=== PATIENT | female | born 1990 | race Caucasian/White ===

== ENCOUNTER → 2016-07-30 | Outpatient (CLI) | payer OTHER ==
[~2016-07-30] MED LIST: FERR50TA3; NITR100C41 PO; PRENTAB26 PO
== END | disposition home or self-care (01) ==
LOC: C.LABSPEC 12:03
PROVIDERS: ATTEND Obstetrics & Gynecology
DX: O09.293 Supervision of pregnancy with other poor reproductive or obstetric history, third trimester (principal)

== ENCOUNTER 2016-08-23 19:24 | Inpatient (IN) | payer OTHER ==
[~2016-08-23] VITALS: Ht 154.9 cm; Wt 69.1 kg
[~2016-08-23 19:24] MED LIST changes: -FERR50TA3; -PRENTAB26 PO
[2016-08-23] MEDS ORDERED: LACTATED RINGER'S 1000ML 1,000 ML IV SCH (20:08)
[2016-08-23] MEDS ORDERED: LACTATED RINGER'S 1000ML 1,000 ML IV PRN (20:08)
[2016-08-23 20:30] LABS: HEMATOCRIT 33.5 % (37-47); MEAN CELL VOLUME 77.2 fL (80-100); MEAN CORPUSCULAR HEMOGLOBIN 25.3 pg (25-34); MEAN CORPUSCULAR HGB CONC 32.8 g/dl (32-36); PLATELET COUNT 197 K/uL (130-400); RED BLOOD COUNT 4.34 M/uL (4.2-5.4); WHITE BLOOD COUNT 22.49 K/uL (4.8-10.8)
[2016-08-23] MEDS ORDERED: BUPIVACAINE 0.25% 30 ML VIAL ONE (20:34)
[2016-08-23] MEDS ORDERED: EpHEDrine SULFATE INJ 50 MG/ML AMP ONE (20:34)
[2016-08-23] MEDS ORDERED: FENTANYL 2MCG/ML ROPIV 1.25MG/ML 100ML BAG EPI ONE (20:35)
[2016-08-23] MEDS ORDERED: FENTANYL CITRATE INJ 50 MCG/1 ML 2 ML VIAL ONE (20:35)
[2016-08-23 21:08] VITALS: Ht 154.9 cm; Wt 69.1 kg
[2016-08-23] MEDS ORDERED: FERR50TA3 (21:12)
[2016-08-23] MEDS ORDERED: PRENTAB26 PO (21:12)
[2016-08-23] MEDS ORDERED: LACTATED RINGER'S 1000ML 500 ML IV PRN (21:50)
[2016-08-23] MEDS ORDERED: EpHEDrine SULFATE INJ 50 MG/ML AMP IV PRN (22:00)
[2016-08-23] MEDS ORDERED: FENTANYL 2MCG/ML ROPIV 1.25MG/ML 100ML BAG EPI PRN (22:00)
[2016-08-23] MEDS ORDERED: NALOXONE HCL INJ 0.4 MG/1 ML VIAL/CARP IV PRN (22:00)
[2016-08-24] MEDS ORDERED: LACTATED RINGER'S 1000ML 500 ML IV PRN (04:12)
[2016-08-24] MEDS ORDERED: OXYTOCIN 30 UNITS/500ML NSS IV PRN ×2 (04:15→06:45)
[2016-08-24] MEDS ORDERED: NURSING VERBAL MED ORDER ONE (05:45)
[2016-08-24] MEDS ORDERED: IBUPROFEN 600 MG TAB PO PRN (06:45)
[2016-08-24] MEDS ORDERED: ACETAMINOPHEN 325 MG TAB PO PRN (06:45)
[2016-08-24] MEDS ORDERED: BENZOCAINE 20% AER SPR 82.5 GM CAN EXT PRN (06:45)
[2016-08-24] MEDS ORDERED: HYDROCORTISONE ACETATE 25 MG SUPP PR PRN (06:45)
[2016-08-24] MEDS ORDERED: ACETAMINOPHEN/CODEINE 300/30MG TAB PO PRN ×2 (06:45)
[2016-08-24] MEDS ORDERED: SUPERCREAM 0.870 % 15GM JAR EXT PRN (06:45)
[2016-08-24] MEDS ORDERED: LANOLIN OINT EXT PRN ×2 (06:45)
[2016-08-24] MEDS ORDERED: DIPHTHERIA/TETANUS/PERTUSSIS 0.5 ML SYR/VIAL IM. ONE (06:45)
--- NOTE | 2016-08-24 08:39 | DELIVERY SUMMARY ---
DATE OF OPERATION: 08/24/2016 DATE OF DELIVERY: 08/24/2016 FINDINGS: Viable female infant with Apgars of 8 and 9. Baby delivered over a midline episiotomy. Cord gases, cord blood samples obtained. Placenta delivered spontaneously. Episiotomy repaired with 2-0 and 4-0 Vicryl in a routine fashion. Estimated blood loss 300 mL. LABOR NOTE: The patient is a 26-year-old 2 para 0 with an EDC of 25 August who was admitted 39+ weeks gestational age with spontaneously rupture of membranes. The patient had been having contractions throughout the day of admission on 23 August. At approximately 1745 she had spontaneously rupture of membranes with subsequent increase in contractions. The patient has had a benign course. Her blood type A+, antibody negative, rubella immune, hepatitis B negative. She had a negative quad screen. She had a normal 1 hour Glucola x2. She had a negative third trimester beta strep culture. Upon admission, the patient was 2 cm dilated, 75% effaced, -1. AmniSure was positive for ruptured membranes. The contractions increased in intensity and anesthesia was consulted and an epidural was placed. Following placement of the epidural, there was approximately a 5 minutes deceleration to the 80s to 90s with slight decrease in blood pressure. She received ephedrine x1 which brought the blood pressure up and the heart rate returned to normal. Over the next 6 hours the patient had cervical change only to 7 cm. At that point, Pitocin was initiated per induction protocol for protracted active phase. Over the next 2 hours she progressed to full dilatation and began her second stage. She pushed for approximately 20 minutes delivering the viable female with description as above. Cord was clamped and cut. Cord gases, cord blood samples obtained. The placenta was delivered spontaneously. Midline episiotomy was repair with 4-0 and 2-0 Vicryl in a routine fashion. Estimated blood loss was 300 mL. Sponge and needle count was correct. I attest to the content of the Intraoperative Record and any orders documented therein. Any exceptions are noted below. MTDD
[2016-08-24 09:30] VITALS: BP 126/72; PULSE 113
[2016-08-24 12:20] VITALS: BP 117/74; PULSE 93; TEMP 37
[2016-08-24] MEDS: PRENATAL VITAMIN TAB PO SCH (15:07)
[2016-08-24] MEDS: DOCUSATE SODIUM 100 MG CAP PO SCH ×2 (15:07→19:36)
[2016-08-24] MEDS: FERROUS SULFATE 325 MG TAB PO SCH (15:07)
[2016-08-24 16:10] VITALS: BP 115/77; PULSE 102; TEMP 36.9; O2SAT 99
[2016-08-24 19:25] VITALS: BP 114/70; PULSE 93; TEMP 37.2; O2SAT 98
[2016-08-25 01:00] VITALS: BP 120/75; PULSE 72; TEMP 36.7
[2016-08-25 03:25] VITALS: BP 119/77; PULSE 105; TEMP 36.4
--- NOTE | 2016-08-25 06:50 | Medical Student: [facility] ---
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 Subjective conversation w/ patient Ambulation: ambulating normally Voiding: no voiding problems Passing Gas: Yes Diet Tolerance: Regular Diet Lochia: Moderate Feeding Type: Breast Feeding Review of Systems Constitutional: No fever Respiratory: No cough, No shortness of breath Cardiac: No chest pain, No palpitations Abdomen: No constipation, No diarrhea, No nausea, No pain, No vomiting Female : No dysuria Objective Vital Signs Date Time Temp Pulse Resp B/P Pulse Ox O2 Delivery O2 Flow Rate FiO2 08/25/16 03:25 36.4 105 18 119/77 Room Air 08/25/16 01:00 36.7 72 18 120/75 Room Air 08/25/16 01:00 Room Air 08/24/16 19:25 37.2 93 18 114/70 98 Room Air 08/24/16 16:10 99 Room Air 08/24/16 16:10 36.9 102 16 115/77 99 Room Air 08/24/16 12:20 37.0 93 16 117/74 Room Air 08/24/16 12:20 Room Air 08/24/16 09:30 113 20 126/72 Room Air Physical Exam General Appearance: WELL-APPEARING, WD/WN Respiratory/Chest: lungs clear, normal breath sounds Cardiovascular: regular rate, rhythm, no edema, no gallop, no JVD, no murmur Abdomen: normal bowel sounds Fundus: Firm, Non-Tender, Relation to Umbilicus (1 cm below ) Extremities: non-tender, no pedal edema Laboratory Results Last 24 Hours Test 08/25/16 04:44 Medications Medications (Trade) Dose Ordered Sig/Gisela Route Start Time Stop Time Status Last Admin Dose Admin Benzocaine (Dermoplast Aero Spr) 1 appln PRN PRN EXT 08/24/16 06:45 09/23/16 06:44 08/24/16 15:07 82.5 APPLN Prenat Multivit/ [place]/Iron/Folic Ac ( Vitamin Tab) 1 tab DAILY PO 08/24/16 08:00 09/23/16 07:59 08/24/16 15:07 1 TAB Docusate Sodium (coLACE CAP) 100 mg BID PO 08/24/16 08:00 09/23/16 07:59 08/24/16 19:36 100 MG Ferrous Sulfate (Feosol Tab) 325 mg DAILY PO 08/24/16 08:00 09/23/16 07:59 08/24/16 15:07 325 MG Assessment and Plan Post- Day Number: 1 Continue Routine Care: Patient is a 26 year old , PP day 1, and midline episiotomy. -vitals stable except for tachycardia (HR 105) -blood type A +, rubella immune -doing well clinically -encourage ambulation -tolerating PO diet -pain well controlled -discharge home tomorrow
[2016-08-25 06:58] LABS: HEMATOCRIT 28.8 % (37-47)
--- NOTE | 2016-08-25 07:11 | Progress Note ---
Subjective Aug 25, 2016. Subjective conversation w/ patient, physical exam Ambulation: ambulating normally Voiding: no voiding problems Passing Gas: Yes Review of Systems Constitutional: No fever Respiratory: No cough Cardiac: No chest pain Abdomen: No nausea, No pain Objective Vital Signs Date Time Temp Pulse Resp B/P Pulse Ox O2 Delivery O2 Flow Rate FiO2 08/25/16 03:25 36.4 105 18 119/77 Room Air 08/25/16 01:00 36.7 72 18 120/75 Room Air 08/25/16 01:00 Room Air 08/24/16 19:25 37.2 93 18 114/70 98 Room Air 08/24/16 16:10 99 Room Air 08/24/16 16:10 36.9 102 16 115/77 99 Room Air 08/24/16 12:20 37.0 93 16 117/74 Room Air 08/24/16 12:20 Room Air 08/24/16 09:30 113 20 126/72 Room Air Physical Exam General Appearance: WELL-APPEARING Respiratory/Chest: chest non-tender, lungs clear Cardiovascular: regular rate, rhythm Extremities: non-tender, no calf tenderness Laboratory Results Last 24 Hours Test 08/25/16 06:29 Hemoglobin 9.2 g/dL Hematocrit 28.8 % Assessment and Plan Post- Day#: 1 Continue Routine Care: PATIENT DAY 1 POST DELIVERY Resident Physician Supervision Note: I interviewed and examined the patient. Discussed with Dr. Gillespie and agree with findings and plan as documented in the note. Any exceptions or clarifications are listed here: routine care Documented By: Luis Nails
[2016-08-25] MEDS: FERROUS SULFATE 325 MG TAB PO SCH (08:05)
[2016-08-25] MEDS: PRENATAL VITAMIN TAB PO SCH (08:06)
[2016-08-25] MEDS: DOCUSATE SODIUM 100 MG CAP PO SCH ×2 (08:06→19:48)
[2016-08-25 08:15] VITALS: BP 115/79; PULSE 90; TEMP 36.5; O2SAT 98
[2016-08-25 15:45] VITALS: BP 122/79; PULSE 89; TEMP 36.8; O2SAT 99
--- NOTE | 2016-08-25 18:14 | Family Medicine Progress Note ---
Progress Note Date of Service Aug 25, 2016. Subjective Pt evaluation today including: conversation w/ patient, physical exam, chart review Medications Current Inpatient Medications Medications (Trade) Dose Ordered Sig/Gisela Route Start Time Stop Time Status Last Admin Dose Admin Lactated Ringer's 1,000 ml @ 125 mls/hr Q8H IV 08/23/16 20:08 08/25/16 20:07 08/23/16 21:28 125 MLS/HR Lactated Ringer's 1,000 ml @ 999 mls/hr Q1H1M PRN IV 08/23/16 20:08 09/22/16 20:07 08/23/16 22:06 999 MLS/HR Lactated Ringer's (Lr 1000ml) 500 ml @ 999 mls/hr Q31M PRN IV 08/24/16 04:12 09/23/16 04:11 Oxytocin (Pitocin IV) 30 units UD PRN IV 08/24/16 06:45 09/23/16 06:44 Benzocaine (Dermoplast Aero Spr) 1 appln PRN PRN EXT 08/24/16 06:45 09/23/16 06:44 08/24/16 15:07 82.5 APPLN Cocaine HCl (Supercream 0.870% Cr) BID PRN EXT 08/24/16 06:45 09/07/16 06:44 Hydrocortisone Acetate (Anusol Hc Supp) 25 mg BID PRN [place] 08/24/16 06:45 09/23/16 06:44 Lanolin (Lanolin Oint) PRN PRN EXT 08/24/16 06:45 09/23/16 06:44 Prenat Multivit/ [place]/Iron/Folic Ac ( Vitamin Tab) 1 tab DAILY PO 08/24/16 08:00 09/23/16 07:59 08/25/16 08:06 1 TAB Ibuprofen (Motrin Tab) 600 mg Q4H PRN PO 08/24/16 06:45 09/23/16 06:44 Acetaminophen (Tylenol Tab) 650 mg Q6H PRN PO 08/24/16 06:45 09/23/16 06:44 Acetaminophen/ Codeine Phosphate (Tylenol w/ Codeine #3 Tab) 1 tab Q4H PRN PO 08/24/16 06:45 09/23/16 06:44 Acetaminophen/ Codeine Phosphate (Tylenol w/ Codeine #3 Tab) 2 tab Q4H PRN PO 08/24/16 06:45 09/23/16 06:44 Bisacodyl (Dulcolax Tab) 5 mg 20 PO 08/25/16 20:00 08/25/16 20:01 Docusate Sodium (coLACE CAP) 100 mg BID PO 08/24/16 08:00 09/23/16 07:59 08/25/16 08:06 100 MG Ferrous Sulfate (Feosol Tab) 325 mg DAILY PO 08/24/16 08:00 09/23/16 07:59 08/25/16 08:05 325 MG
[2016-08-25] MEDS ORDERED: BISACODYL 5 MG TABEC PO SCH (20:00)
[2016-08-25 23:40] VITALS: BP 119/70; PULSE 81; TEMP 36.5
--- NOTE | 2016-08-26 06:39 | Medical Student: [facility] ---
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 Subjective conversation w/ patient Ambulation: ambulating normally Voiding: no voiding problems Passing Gas: Yes Diet Tolerance: Regular Diet Lochia: Small Feeding Type: Breast Feeding Review of Systems Constitutional: No chills, No fever Respiratory: No cough, No shortness of breath Cardiac: No chest pain, No palpitations Abdomen: + constipation, No diarrhea, No nausea, No pain, No vomiting Female : No dysuria Objective Vital Signs Date Time Temp Pulse Resp B/P Pulse Ox O2 Delivery O2 Flow Rate FiO2 08/25/16 23:40 Room Air 08/25/16 23:40 36.5 81 18 119/70 Room Air 08/25/16 15:45 36.8 89 18 122/79 99 Room Air 08/25/16 15:45 99 Room Air 08/25/16 08:15 98 Room Air 08/25/16 08:15 36.5 90 16 115/79 98 Room Air Physical Exam General Appearance: WELL-APPEARING, NO APPARENT DISTRESS Respiratory/Chest: lungs clear, normal breath sounds Cardiovascular: regular rate, rhythm, no edema, no gallop, no murmur Abdomen: normal bowel sounds Extremities: non-tender, no pedal edema Medications Medications (Trade) Dose Ordered Sig/Gisela Route Start Time Stop Time Status Last Admin Dose Admin Bisacodyl (Dulcolax Tab) 5 mg 20 PO 08/25/16 20:00 08/25/16 20:01 DC 08/25/16 19:48 5 MG Assessment and Plan Post- Day Number: 2 Continue Routine Care: Patient is 26 years old , PP day 2, s/p with midline episiotomy. -vitals stable and WNL -blood type A +, rubella immune -doing well clinically -encourage ambulation -tolerating PO diet -pain well controlled -controlling constipation with PO Colace 100 mg BID -consider discharge home today
--- NOTE | 2016-08-26 07:32 | Progress Note ---
Subjective Aug 26, 2016. Subjective conversation w/ patient, physical exam Ambulation: ambulating normally Voiding: no voiding problems Passing Gas: Yes Diet Tolerance: Regular Diet Lochia: Small Feeding Type: Breast Feeding Pain: 07/22 Review of Systems Constitutional: No chills, No fever Respiratory: No cough, No shortness of breath Cardiac: No chest pain, No edema, No palpitations Breast: No breast pain Abdomen: + constipation, No nausea, No pain, No vomiting Objective Vital Signs Date Time Temp Pulse Resp B/P Pulse Ox O2 Delivery O2 Flow Rate FiO2 08/25/16 23:40 Room Air 08/25/16 23:40 36.5 81 18 119/70 Room Air 08/25/16 15:45 36.8 89 18 122/79 99 Room Air 08/25/16 15:45 99 Room Air 08/25/16 08:15 98 Room Air 08/25/16 08:15 36.5 90 16 115/79 98 Room Air Physical Exam General Appearance: WELL-APPEARING Respiratory/Chest: lungs clear, normal breath sounds, no respiratory distress Cardiovascular: regular rate, rhythm Abdomen: normal bowel sounds Fundus: Firm, Non-Tender, Relation to Umbilicus Extremities: normal range of motion, non-tender, no calf tenderness Assessment and Plan Post- Day#: 2 Continue Routine Care: 26year old female post day 2 after of healthy female Plan for D/C today with follow up in clinic in 6 weeks
--- NOTE | 2016-08-26 07:34 | Discharge Instructions ---
Discharge Instructions Admission Reason for Admission: Encounter For Supervision Of Normal Intrauterine P Discharge Discharge Diagnosis / Problem: ( Day 2) Discharge Goals Goal(s): Routine recovery after delivery, Continuing OB care Activity Recommendations Activity Limitations: resume your previous activity . Current Hospital Diet Patient's current hospital diet: Regular OB Diet Discharge Diet Recommended Diet: Regular OB Diet Pending Studies Studies pending at discharge: no Medical Emergencies . Who to Call and When: Medical Emergencies: If at any time you feel your situation is an emergency, please call 911 immediately. . Non-Emergent Contact Non-Emergency issues call your: Primary Care Provider, Rack Cleaner . . "Provider Documentation" section prepared by Du Gillespie. VTE Core Measure Inpt VTE Proph given/why not?: Treatment not indicated
[2016-08-26] MEDS: FERROUS SULFATE 325 MG TAB PO SCH (08:27)
[2016-08-26] MEDS: DOCUSATE SODIUM 100 MG CAP PO SCH (08:28)
[2016-08-26] MEDS: PRENATAL VITAMIN TAB PO SCH (08:28)
[2016-08-26 08:45] VITALS: BP 120/79; PULSE 96; TEMP 36.8
[2016-08-26 11:20] VITALS: BP_DIAS 79; PULSE 96; TEMP 36.8
== END 2016-08-26 11:25 | disposition home or self-care (01) | DRG 775 ==
LOC: C.OPB 19:24 → C.LD 19:24 → C.OPB 20:09 → C.LD 20:09 → C.OBG 08-24 10:17
PROVIDERS: ADMIT Obstetrics & Gynecology; ATTEND Obstetrics & Gynecology
PROC: 0W8NXZZ Division of Female Perineum, External Approach (ICD-10-PCS; principal; 2016-08-24)
PROC: 10E0XZZ Delivery of Products of Conception, External Approach (ICD-10-PCS; principal; 2016-08-24)
DX: O42.02 Full-term premature rupture of membranes, onset of labor within 24 hours of rupture (principal); Z37.0 Single live birth; O76 Abnormality in fetal heart rate and rhythm complicating labor and delivery; O63.1 Prolonged second stage (of labor); Z3A.39 39 weeks gestation of pregnancy

== ENCOUNTER → 2016-11-11 | Outpatient (CLI) | payer OTHER ==
[~2016-11-11] MED LIST changes: +FERR50TA3; -NITR100C41 PO; +PRENTAB26 PO
[2016-11-11 09:39] LABS: PREG INTERNAL NEGATIVE QC NEG CLEAR BACKGROUND; PREG INTERNAL POSITIVE QC POS CONTROL LINE
== END | disposition home or self-care (01) ==
LOC: C.LAB1850 09:01
PROVIDERS: ATTEND Physician Assistant
DX: Z30.430 Encounter for insertion of intrauterine contraceptive device (principal)

== ENCOUNTER 2020-10-05 07:45 | Inpatient (IN) ==
[2020-10-05] MEDS ORDERED: OXYTOCIN 30 UNITS/500 ML BAG IV PRN ×2 (09:29→09:37)
--- NOTE | 2020-10-05 09:32 | Labor Progress Brief Note ---
Date of Service October 05, 2020 Subjective Chavis overnight; now in vagina. Irregular mild ctx per patient, no LOF, good FM. Assessment & Plan (1) Post-dates : Pitocin. Epidural on request. Admission and Anticipated Discharge Date Admission Date: October 05, 2020 Physical Exam Physical Exam: 50/-2 Intact membranes FHT Cat 1 [place] Q4-5 Results & Data ([facility]) Vital Signs (Past 12 Hours) Vital Signs Temp Pulse Resp BP 10/05/20 08:00 98.2 F 96 H 20 110/68 Coding Level of Care Code None Diagnoses Post-dates O48.0
[2020-10-05] MEDS: LACTATED RINGER'S 1,000 ML IV PRN ×3 (09:53→18:52)
[2020-10-05 09:56] LABS: Hematocrit (blood only) 29.1 % (37-47); Hemoglobin 9.3 g/dL (12.0-16.0); Mean Corpuscular Volume 78.2 fL (80-100); Mean Platelet Volume 10.4 fL (7.4-10.4); Platelet Count 174 K/uL (130-400); RDW Coefficient of Variation 14.1 % (11.5-14.5); RDW Standard Deviation 40.4 fL (36.4-46.3); Red Blood Count 3.72 M/uL (4.2-5.4); White Blood Count 10.76 K/uL (4.8-10.8)
[2020-10-05] MEDS ORDERED: SODIUM CHLORIDE 0.9% 250 ML IV PRN (12:18)
[2020-10-05] MEDS ORDERED: BUPIVACAINE 0.25% 30 ML VIAL ONE ×2 (14:01→15:42)
[2020-10-05] MEDS ORDERED: SODIUM CHLORIDE 0.9% INJ 10 ML VIAL ONE ×2 (14:01→15:42)
[2020-10-05] MEDS ORDERED: fentaNYL citrate 100 MCG/2 ML VIAL ONE (14:01)
[2020-10-05] MEDS ORDERED: ePHEDrine sulfate 50 MG/ML AMP ONE (14:01)
[2020-10-05] MEDS ORDERED: fentaNYL 2MCG/ML ROPIVACAINE 1.25MG/ML 100 ML BAG EPI ONE (14:02)
[2020-10-05] MEDS ORDERED: NALOXONE HCL 0.4 MG/1 ML VIAL/CARP IV PRN (14:33)
[2020-10-05] MEDS ORDERED: diphenhydrAMINE 50 MG/ML VIAL IV PRN (14:33)
[2020-10-05] MEDS ORDERED: ePHEDrine sulfate 50 MG/ML AMP IV PRN (14:33)
[2020-10-05] MEDS ORDERED: fentaNYL 2MCG/ML ROPIVACAINE 1.25MG/ML 100 ML BAG EPI PRN ×2 (14:33→15:42)
[2020-10-05] MEDS ORDERED: ONDANSETRON INJ 2 MG/ML 2 ML VIAL IV PRN (14:33)
[2020-10-05] MEDS ORDERED: NALOXONE HCL 1 MG in SODIUM CHLORIDE 0.9% 1000ML 1,000 ML IV PRN (14:33)
--- NOTE | 2020-10-05 14:37 | Anesthesiology Consultation ---
Date of Service October 05, 2020 Covid 19 negative on 10/05/20. Assessment & Plan Chart Review Chart Review: Patient NOT seen in Pre Admission Testing and Acceptable Risk for Labor Epidural Consults Requested none ASA ASA2 Proposed Anesthesia Anesthesia Type: Labor Epidural and CSE Risk / Benefits Reviewed With: PT / POA / Parent / Guardian, Accepts Plan and Informed Consent Obtained History Height/Weight Height: 5 ft 2 in Weight: 64.864 kg Allergies Allergy/AdvReac Type Severity Reaction Status Date / Time penicillin V Allergy Unknown UNKNOWN RXN Verified 10/05/20 08:04 Medications Home Medications Medication Instructions Recorded Confirmed Last Taken prenat.vits,damaris,[id number] 1 tab PO DAILY 02/15/20 10/05/20 10/04/20 08:00 Active Medications Generic Name Dose Route Start Last Admin Trade Name Freq PRN Reason Stop Dose Admin Lactated Ringer's 1,000 mls @ 125 mls/hr 10/05/20 09:29 10/05/20 14:26 Lr IV 10/07/20 09:28 999 mls/hr .Q8H PRN Administration L&D Protocol Protocol Oxytocin 30 units in 500 mls @ 11 mls/hr 10/05/20 09:37 10/05/20 12:30 Pitocin IV 10/07/20 09:36 0.66 units/hr .Q24H PRN 11 mls/hr Labor Induction/Augmentation Titration Protocol 0.66 UNITS/HR NPO Date Last Intake of Fluids: 10/05/20 Time Last Intake of Fluids: 14:00 Date Last Intake of Solids: 10/05/20 Time Last Intake of Solids: 09:00 Past Medical History Medical History Cervical cancer screening History of chicken pox Exercise / Class Metabolic Activity II 4-5 Yardwork/Stairs/Walk up hill Past Family History Family History Grandmother (Maternal) Colorectal cancer Other Diabetes Denies family history of Ovarian cancer Breast cancer Past Surgical History Surgical History S/P dilatation and curettage Past Anesthesia History No Hx of Anesthesia Complications and No Family Hx of Anesthesia Complications History of PONV No Hx of PONV and No Hx of Motion Sickness Social History Smoking Status: Never smoker Hx Alcohol Use: No Hx Substance Use: No Review of Systems no chest pain or sob Physical Exam Vital Signs Last Vital Signs Temp 36.9 C 10/05/20 12:56 Pulse 109 H 10/05/20 14:33 Resp 20 10/05/20 12:56 BP 132/81 10/05/20 13:57 Pulse Ox 100 10/05/20 14:33 ENMT Mouth: no TMJ abnormality Thyromental Distance: > or= 3.5 Finger Breadths Mallampati Class: II Neck normal visual inspection Respiratory normal respiratory effort Auscultation: lungs clear to auscultation bilaterally Cardiovascular Rate/Rhythm: regular rate and regular rhythm Musculoskeletal Spine: normal cervical ROM Neurologic moves all extremities Psychiatric Orientation: alert and oriented x 3 Testing Laboratory Results 10/05/20 09:43 Blood Type A Positive 10/05/20 09:43 Antibody Screen NEGATIVE 10/05/20 09:43
--- NOTE | 2020-10-05 19:26 | Delivery Summary ---
Vaginal Delivery Summary Date of Service October 05, 2020 Vaginal Delivery Summary DIAGNOSES: 1. Shepherd intrauterine at 40w3d gestation. 2. Induction of Labor for post-dates . 3. Group B Streptococcus Neg. PROCEDURE: Spontaneous vaginal delivery and repair of second-degree laceration. SURGEON: Ruth Ferrara MD. ENVIRONMENTAL HEALTH AIDE: None. ESTIMATED BLOOD LOSS: 300 mL. COMPLICATIONS: None. PLACENTA: Spontaneous and intact with a 3-vessel cord. DISPOSITION: Stable to labor and delivery. DESCRIPTION: The patient pushed well and brought the head to in EFFIE position. The 's head was allowed to deliver with contraction force and no further active pushing, with the perineum protected during this time. The shoulders delivered easily with a maternal pushing effort. There was no nuchal cord. The left shoulder was anterior and the left hand presented alongside the right cheek / created a perineal tear. the body delivered without any difficulty, and the infant was placed on the maternal abdomen. It was vigorous and moving all extremities, and making respiratory efforts. The cord was doubly clamped by the MD and then cut by the FOB. The placenta delivered spontaneously and was noted to be intact and with a 3VC. The cervix, vagina and perineum were examined and were found to have a second-degree tear which was repaired in the usual manner with vicryl including a crown suture to rebuild the perineal body. The fundus was firm and lochia minimal immediately after delivery. [facility] [place]ag[place] Delivery Charge Vaginal Delivery Codes: 07916 global code for the antepartum, delivery, and post-
[2020-10-05] MEDS ORDERED: BENZOCAINE 20% AER SPR 82.5 GM CAN EXT PRN (19:33)
[2020-10-05] MEDS ORDERED: SUPERCREAM 0.870% 15 GM JAR EXT PRN (19:33)
[2020-10-05] MEDS ORDERED: DIPHTHERIA/TETANUS/PERTUSSIS 0.5 ML SYR/VIAL IM ONE (19:33)
[2020-10-05] MEDS ORDERED: HYDROCORTISONE ACETATE 25 MG SUPP PR PRN (19:33)
[2020-10-05] MEDS ORDERED: oxyCODONE/ACETAMINOPHEN 5mg/325mg TAB PO PRN (19:33)
[2020-10-05] MEDS ORDERED: ACETAMINOPHEN 325 MG TAB PO PRN (19:33)
--- NOTE | 2020-10-05 20:11 | Anesthesia Procedure Note ---
Date of Service October 05, 2020 Anesthesia Post Epidural Note Vital Signs Vital Signs: Temp Pulse Resp BP Pulse Ox 37.1 C 111 H 18 135/82 100 10/05/20 19:00 10/05/20 20:10 10/05/20 19:00 10/05/20 20:10 10/05/20 19:23 Pain Intensity Bilateral Abdomen: Pain Intensity: 0 Notes Mental Status: alert / awake / arousable and participated in evaluation Nausea / Vomiting: adequately controlled Pain: adequately controlled Airway Patency, RR, SpO2: stable & adequate BP & HR: stable & adequate Hydration State: stable & adequate Neuraxial Anesthesia: was administered and sensory block is resolving Anesthetic Complications: no major complications apparent and Pt Satisfied with anesthetic care Epidural: Removed without complications and With tip intact
[2020-10-06] MEDS: DOCUSATE SODIUM 100 MG CAP PO SCH ×2 (02:33→07:50)
--- NOTE | 2020-10-06 04:33 | Obstetrical Progress Note ---
Date of Service <Allan Davis MD - Last Filed: 10/06/20 06:24> October 06, 2020 Assessment & Plan <Allan Davis MD - Last Filed: 10/06/20 06:24> (1) Post-dates : - PNL: Rh [pos], RI, GBS [neg], COVID [neg] - Feels well today. Eating well, voiding well, ambulating well - Pain well controlled with ibuprofen 600mg Q4H PRN - Routine care -- OOB, ambulation, diet progression as tolerated - After discharge will have 6 week follow-up with Dr. Ferrara Subjective <Allan Davis MD - Last Filed: 10/06/20 06:24> Ana is a 30 y/o female who is PPD #1 following at 40+ weeks. She reports feeling well overall this morning. Some abdominal cramping and 1/10 pain well managed on analgesics. Voiding well. Tolerating meals overnight without difficulty. Patient has been able to ambulate some. Is passing gas, has yet to have a bowel movement. Has persistent lochia with some improvement this morning. Currently . Physical Exam <Allan Davis MD - Last Filed: 10/06/20 06:24> General: Alert, oriented. No acute distress. Cardiac: Regular rate and rhythm. No murmurs. Respiratory: Clear to auscultation bilaterally a/p, no wheezes/rales/rhonchi. No increased work of breathing. Symmetrical chest rise. No respiratory distress. Abdomen: Soft, nontender, nondistended. Bowel sounds present. Uterus: Uterine fundus firm, palpable ~1 cm below umbilicus. Lower Extremities: No lower extremity edema or swelling. No deep calf pain. Soniya's negative bilaterally. Results & Data ([facility]) <Allan Davis MD - Last Filed: 10/06/20 06:24> Vital Signs (Past 12 Hours) Vital Signs Temp Pulse Pulse Resp BP BP Pulse Ox 10/06/20 03:00 37.1 C 91 H 18 119/78 10/05/20 22:29 37.4 C 125 H 18 138/81 10/05/20 21:59 125 H 138/81 10/05/20 21:41 123 H 138/93 10/05/20 21:40 96 H 136/79 10/05/20 21:30 115 H 127/77 10/05/20 21:20 108 H 125/77 10/05/20 21:10 104 H 18 125/78 10/05/20 21:00 117 H 135/86 10/05/20 20:50 93 H 146/87 H 10/05/20 20:40 105 H 18 136/79 10/05/20 20:30 103 H 133/79 10/05/20 20:25 18 10/05/20 20:10 111 H 18 135/82 10/05/20 20:00 106 H 124/64 10/05/20 19:55 18 10/05/20 19:50 107 H 124/62 10/05/20 19:40 37.4 C 115 H 18 131/60 10/05/20 19:26 114 H 137/67 10/05/20 19:23 108 H 100 10/05/20 19:18 112 H 100 10/05/20 19:13 155 H 100 10/05/20 19:11 123 H 113/71 10/05/20 19:08 112 H 100 10/05/20 19:03 114 H 100 10/05/20 19:00 37.1 C 18 10/05/20 18:58 109 H 100 10/05/20 18:57 104 H 114/69 10/05/20 18:53 103 H 100 10/05/20 18:48 104 H 100 10/05/20 18:43 97 H 100 10/05/20 18:42 103 H 116/71 10/05/20 18:38 107 H 100 10/05/20 18:33 107 H 100 10/05/20 18:30 18 10/05/20 18:28 117 H 100 10/05/20 18:26 103 H 112/71 10/05/20 18:23 137 H 100 10/05/20 18:18 101 H 100 10/05/20 18:13 97 H 100 10/05/20 18:12 113 H 121/79 10/05/20 18:08 113 H 100 10/05/20 18:03 114 H 100 10/05/20 18:00 36.9 C 20 03/26/21 17:58 119 H 100 10/05/20 17:56 103 H 111/69 10/05/20 17:53 110 H 100 10/05/20 17:48 114 H 100 10/05/20 17:43 110 H 100 10/05/20 17:41 108 H 118/74 10/05/20 17:38 113 H 99 10/05/20 17:33 116 H 100 10/05/20 17:30 20 10/05/20 17:28 93 H 100 10/05/20 17:27 98 H 117/74 10/05/20 17:23 114 H 100 10/05/20 17:18 116 H 100 10/05/20 17:13 102 H 100 10/05/20 17:12 123 H 111/70 10/05/20 17:08 97 H 100 10/05/20 17:03 105 H 100 10/05/20 17:00 20 10/05/20 16:58 108 H 100 10/05/20 16:56 122 H 113/71 10/05/20 16:53 110 H 100 10/05/20 16:48 123 H 100 10/05/20 16:43 100 H 104/67 100 10/05/20 16:38 122 H 99 <Ruth Ferrara MD - Last Filed: 10/06/20 08:00> Co-Signing Physician Notes Resident Physician Supervision Note: I interviewed and examined the patient. Discussed with Dr. Scanlon and agree with findings and plan as documented in the note. Any exceptions or clarifications are listed here: [ ] Documented By: Ruth Ferrara MD, FACOG Resident Activity Tracking <Allan Davis MD - Last Filed: 10/06/20 06:24> Resident Involvement: Resident Care Provided Care Provided: OB Delivery
[2020-10-06 06:40] LABS: Hematocrit (blood only) 26.2 % (37-47); Hemoglobin 8.4 g/dL (12.0-16.0); Mean Corpuscular Hemoglobin 24.9 pg (25-34); Mean Corpuscular Hgb Conc 32.1 g/dL (32-36); Mean Corpuscular Volume 77.7 fL (80-100); Mean Platelet Volume 10.6 fL (7.4-10.4); Platelet Count 181 K/uL (130-400); RDW Coefficient of Variation 14.1 % (11.5-14.5); RDW Standard Deviation 40.5 fL (36.4-46.3); Red Blood Count 3.37 M/uL (4.2-5.4); White Blood Count 14.48 K/uL (4.8-10.8)
[2020-10-06] MEDS: IBUPROFEN 600 MG TAB PO PRN ×2 (07:50→14:30)
[2020-10-06] MEDS ORDERED: PRENATAL VITAMIN 1 TAB PO SCH (08:00)
== END 2020-10-06 20:25 | disposition home or self-care (01) | DRG 807 ==
LOC: 4S1 07:45 → 4S2 22:36